=== PATIENT | female | born 1965 | race Caucasian/White ===

== ENCOUNTER 2017-05-24 10:03 | Day surgery (SDC) | payer BC ==
[~2017-05-24] VITALS: Ht 160 cm; Wt 61.0 kg
[~2017-05-24 10:03] MED LIST: 0.92DISP2 IVF; ACET-1770 PO; ACIDOPHILUS PROB1 MG PO; BISA10SU2 PR; CHOL10002 PO; DARB10SY SC; DIPH25CA61 PO; DOCU100C8 PO; GABA-826 PO; HEPA50004 SC; HYDR2TAB40 IV; IBUP200T64 PO; LACT10SO28 PO; MAGN400O4 PO; MAGN400T36 PO; MUPI22OI TP; ONDA-39 PO; OPIU1SUP2 PR; OXYC5CAP4 PO; POLY17PO5 PO; VALA500T4 PO
[2017-05-24] MEDS ORDERED: PREG100C PO (10:52)
[2017-05-24] MEDS ORDERED: HYDR5CRY PO (10:52)
[2017-05-24 10:56] VITALS: BP 114/76
[2017-05-24] MEDS ORDERED: LACTATED RINGERS 1,000 ML IV SCH (11:00)
[2017-05-24] MEDS ORDERED: BACITRACIN 50,000 UNIT ONE (11:17)
[2017-05-24] MEDS ORDERED: BUPIVACAINE/PF-EPI 0.5% 1:200K ONE (11:17)
[2017-05-24] MEDS ORDERED: FENTANYL PF 100 MCG/2ML ONE (11:39)
[2017-05-24] MEDS ORDERED: MIDAZOLAM 1 MG/ML, 2ML ONE (11:39)
[2017-05-24] MEDS ORDERED: DEXAMETHASONE 4 MG/ML, 1ML ONE (11:50)
[2017-05-24] MEDS ORDERED: ONDANSETRON 2MG/ML, 2ML ONE (11:50)
[2017-05-24] MEDS ORDERED: PROPOFOL 10 MG/ML, 20ML ONE (11:50)
[2017-05-24] MEDS ORDERED: CEFAZOLIN 1,000 MG ONE (11:50)
[2017-05-24] MEDS ORDERED: PROMETHAZINE 25 MG/ML, 1ML IV PRN (12:00)
[2017-05-24] MEDS ORDERED: FENTANYL PF 100 MCG/2ML IV PRN (12:00)
[2017-05-24] MEDS ORDERED: HYDROmorphone 1 MG/ML, 1ML IV PRN (12:00)
[2017-05-24] MEDS ORDERED: OXYcodone 5 MG/5 ML ORAL.SOL UDC PO PRN (12:00)
[2017-05-24] MEDS ORDERED: ACETAMINOPHEN 325 MG TABLET PO PRN (12:00)
[2017-05-24] MEDS ORDERED: LIDOCAINE 0.5%-EPI 1:200K, 50ML ONE (12:02)
[2017-05-24] MEDS ORDERED: LIDOCAINE/PF 1.5%-EPI 1:200K, 30ML ONE (12:02)
== END 2017-05-24 14:25 | disposition home or self-care (01) ==
LOC: OUT 10:03
PROVIDERS: ATTEND Orthopaedic Surgery
DX: M86.8X4 Other osteomyelitis, hand (principal); Z88.0 Allergy status to penicillin
CPT/HCPCS: 26951; J0690; J1100; J2250; J2405; J2704; J3010; J3490; J7120

== ENCOUNTER → 2020-09-01 | Outpatient (CLI) | payer MEDICARE ==
[~2020-09-01] MED LIST changes: +ASCO-184 PO; -BISA10SU2 PR; +BISA10SU4 PR; +DOCU100C33 PO; -DOCU100C8 PO; +HYDR-3246 PO; +HYDR5CRY PO; -MAGN400O4 PO; +MAGN400O7 PO; +NALT50TA PO; -ONDA-39 PO; +ONDA-89 PO; +OXYC5CAP2 PO; -OXYC5CAP4 PO; +PREG100C PO; +VITAMIN K PO; +ZINC PO
== END | disposition home or self-care (01) ==
LOC: STAR 14:54
PROVIDERS: ATTEND Orthopaedic Surgery
DX: Z20.828 Contact with and (suspected) exposure to other viral communicable diseases (principal); Z89.431 Acquired absence of right foot
CPT/HCPCS: 87635

== ENCOUNTER 2020-09-05 07:17 | Day surgery (SDC) | payer MEDICARE ==
[~2020-09-05] VITALS: Ht 160 cm; Wt 56.0 kg
[2020-09-05] MEDS ORDERED: FENTANYL PF 100 MCG/2ML ONE (07:29)
[2020-09-05] MEDS ORDERED: MIDAZOLAM 1 MG/ML, 2ML ONE (07:29)
[2020-09-05 07:45] VITALS: BP 115/65
[2020-09-05] MEDS ORDERED: CHLORHEXIDINE 15 ML UDC ONE (07:53)
[2020-09-05] MEDS ORDERED: LACTATED RINGERS 1,000 ML IV SCH (08:00)
[2020-09-05] MEDS ORDERED: CHLORHEXIDINE 15 ML UDC MM STA (08:12)
[2020-09-05] MEDS ORDERED: ACETAMINOPHEN 325 MG TABLET PO PRN (09:00)
[2020-09-05] MEDS ORDERED: PROMETHAZINE 25 MG/ML, 1ML IVPush PRN (09:00)
[2020-09-05] MEDS ORDERED: HYDROmorphone 1 MG/ML, 1ML INJ IVPush PRN (09:00)
[2020-09-05] MEDS ORDERED: FENTANYL PF 100 MCG/2ML IV PRN (09:00)
[2020-09-05] MEDS ORDERED: LORazepam 2 MG/ML, 1ML IVPush PRN (09:00)
[2020-09-05] MEDS ORDERED: OXYcodone 5 MG/5 ML ORAL.SOL UDC PO PRN (09:00)
[2020-09-05] MEDS ORDERED: MEPERIDINE/PF 25MG/0.5ML IVPush PRN (09:00)
[2020-09-05] MEDS ORDERED: VANCOMYCIN 1,000 MG ONE (09:05)
[2020-09-05] MEDS ORDERED: PROPOFOL 10 MG/ML, 20ML ONE (09:06)
[2020-09-05] MEDS ORDERED: DEXAMETHASONE 4 MG/ML, 1ML ONE (09:06)
[2020-09-05] MEDS ORDERED: ONDANSETRON 2MG/ML, 2ML ONE (09:06)
[2020-09-05] MEDS ORDERED: CEFAZOLIN 1,000 MG ONE (09:06)
[2020-09-05] MEDS ORDERED: BUPIVACAINE/PF 0.5% ONE (09:06)
[2020-09-05] MEDS ORDERED: PROPOFOL 10 MG/ML, 50ML ONE (16:23)
== END 2020-09-05 12:15 | disposition home or self-care (01) ==
LOC: OUT 07:17
PROVIDERS: ATTEND Orthopaedic Surgery
DX: T81.89XA Other complications of procedures, not elsewhere classified, initial encounter (principal); Y83.8 Other surgical procedures as the cause of abnormal reaction of the patient, or of later complication, without mention of misadventure at the time of the procedure; N18.30 Chronic kidney disease, stage 3 unspecified; Z98.890 Other specified postprocedural states; Z88.0 Allergy status to penicillin; Z79.899 Other long term (current) drug therapy; Z72.89 Other problems related to lifestyle
CPT/HCPCS: 28805; 64445; 64450; J0690; J1100; J2250; J2405; J2704; J3010; J3370; J7120